=== PATIENT | female | born 1995 | race Caucasian/White ===

== ENCOUNTER 2017-02-14 19:49 | Emergency (ER) | payer OTHER ==
[~2017-02-14] VITALS: Ht 165.1 cm; Wt 80.9 kg
[~2017-02-14 19:49] MED LIST: MEDR150D9 IM
[2017-02-14 20:13] VITALS: BP 144/67; PULSE 90; RESP 16; O2SAT 99
--- NOTE | 2017-02-14 20:48 | ED.REPORT ---
HPI-Extremity Problem Upper Date of Service Feb 14, 2017 ED Provider: Dr. Escamilla Pt is an otherwise healthy 21 year old female who presents to the ED complaining of right hand pain after punching a wall prior to arrival. The pt punched a wall after her fiance left her. She denies any other symptoms. The pt denies feeling unsafe. She denies suicidal or homicidal ideations. Nursing Notes Stated Complaint: RIGHT HAND PAIN Chief Complaint: Extremity Trauma Nursing Notes Reviewed: Yes Allergies: Coded Allergies: Metronidazole HCl (Verified Allergy, Severe, Rash Respiratory Distress, ) metronidazole (Verified Allergy, Severe, Rash Respiratory Distress, ) vancomycin (Verified Allergy, Severe, Rash Respiratory Distress, 05/23/15) doxycycline (Verified Allergy, Unknown, 05/23/15) hydromorphone (Verified Allergy, Unknown, 08/22/15) hydromorphone HCl (Verified Adverse Reaction, Mild, 05/23/15) SENSITIVE TO DOSING - GETS SOB Scheduled Medroxyprogesterone Acetate (Depo-Provera) 150 Mg/1 Ml Syringe 150 MG IM every 3 months General Time Seen by MD: 20:48 Chief Complaint Wrist injury right Hx Obtained From: Patient Arrived By: Walk-in Onset Occurred: Just prior to arrival Symptom Duration: Since onset Location: : Wrist right Quality: Painful Severity: Current: Moderate Severity: Maximum: Moderate Immunizations: All up to date Recent Healthcare: No recent doctor visit, No recent hospitalization Similar Sx Previous: No Past Medical History Past Medical History Fibromyalgia Stomach ulcers Denies: Congestive heart failure, Diabetes mellitus Past Surgical History Reports: Appendectomy Family History Noncontributory Smoking History Never Smoker Social History Taking care of her grandma Alcohol Use: Denies alcohol use Drug Use: Denies drug use Other Social History: Lives with parents [facility] a [facility] Ambulatory Status Independent Review of Systems Basic Review of Systems Eyes: Vision NL ENT: Hearing NL Musculoskeletal: Reports: Extremity pain Complete sys rev & neg: except as marked. Respiratory: Denies: Non-productive cough, Shortness of breath Physical Exam Initial Vital Signs Vital Signs (First) Date Time Temp Pulse Resp B/P Pulse Ox O2 Delivery O2 Flow Rate FiO2 02/14/17 20:13 37.6 90 16 144/67 99 Room Air Initial VS: Reviewed Head / Eyes: Atraumatic, Normocephalic, PERRL ENT: Mucous membranes moist, Conjunctiva normal, No scleral icterus Neck: Supple, Full range of motion Respiratory: Breath sounds normal, Clear to auscultation, No respiratory distress Cardiovascular: Regular rate & rhythm, Heart sounds normal, Intact distal pulses Abdomen / GI: Soft, Non-tender Lower Extremities: Vascular intact, Neuro intact Skin: Warm, Dry, No cyanosis Neurologic: Alert, Oriented, Nonfocal Psychiatric: Mood/affect normal, Behavior normal General/Constitutional: Awake, Alert, Cooperative, Not toxic appearing Behavior: Positive: Tearful Wrist / Hand: Neurologic intact, Vascular intact Dorsal wrist tenderness and swelling No bony deformity. Interpretation & Diagnostics X-Ray Interpretation Xray Interpretation: IMPRESSION: No acute radiographic findings. If pain persists, repeat study in 5-7 days is recommended to exclude occult fracture. Dictated by: Brandie Zavala M.D. on 02/14/2017 at 20:49 Study Performed: Minimum 3 views X-Ray Ordered: Wrist right Interpretation / Wet Read by: Interpret - Radiologist Re-Eval/Medical Decision Med Decision/Clinical Course Healthy 21-year-old female punched a wall after her fiance moved out of the house. She came in quite anxious. She is evaluated by her social work program coordinator. She does not need to be admitted. She felt better after talking or social work program coordinator. No suicidal homicidal ideations and she feels safe at home. She has to take care of a family member at home was on hospice. Her hand was tender so we x- rayed it. X-rays look good. We placed her in a splint after which she was neurovascularly intact. It was a Velcro splint. She needed to use her hand at times take care of her family member. Short course of opiates provided for pain. She is not to combine this with any sedatives. No driving or alcohol or acetaminophen for multiple opiates. Follow-up in a week for repeat x-rays if pain persists. Source of Hx: Old records Re-Evaluation/Progress : Time of Eval: 22:04 Re-Evaluation/Progress Note: Pt rechecked. Informed pt of plan for discharge. Pt understands and agrees with plan for discharge. F/U instructions and RTER warnings given. All questions addressed. Counseled Regarding: Diagnosis, Need for follow-up, When/why to return to ED Discharge & Departure Shift Change Sign-Out Response to Therapy: Improved Impression: Primary Impression: Hand contusion Encounter type: initial encounter Laterality: right Qualified Code: S60.221A - Contusion of right hand, initial encounter Disposition: Home Discharge Condition All VS Reviewed: Yes Condition: Stable Additional Instructions: Keep your wrist splinted for 1 week. Call the referral orthopedic surgeon or your primary care physician to set up for follow-up. If your are still having pain after 7 days you will need repeat x-rays. Have this managed by your primary care provider. Take 1-2 Lydia every 6 hours as needed. Do not drive, drink alcohol, or consume acetaminophen while taking Lydia. Return to the Emergency Department for any concerning symptoms or as needed. Contact of the outpatient counselors that were provided by our social work program coordinator. Return to the emergency department if you feel that you are having a psychiatric or medical emergency. Return if you feel that you are unable to manage your current social issues at home or if you have any suicidal or homicidal ideations Referrals: Cindy Franco PA-C (PCP) Alfredito Gonzales Attestation Portions of this note were transcribed by Raven Swan. I, Dr. Escamilla personally performed the history, physical exam and medical decision-making; I reviewed and confirmed the accuracy of the information in the transcribed note. Signed by: Saloni Billy, 02/14/17 and 21:30 copies to: Alfredito Gonzales DO; Cindy Franco PA-C, Todd P DO Feb 14, 2017 20:48 Raven Capps Feb 14, 2017 21:11
--- NOTE | 2017-02-14 20:52 | DRSVH ---
PROCEDURE: X-RAY RIGHT HAND, MINIMUM THREE VIEWS ([id number]) INDICATIONS: injury TECHNIQUE: 3 views of the hand(s) acquired. COMPARISON: None. FINDINGS: Bones: No fractures or dislocations. Carpal bones are normally aligned. No suspicious bony lesions . Soft tissues: No suspicious soft tissue calcifications. IMPRESSION: No acute radiographic findings. If pain persists, repeat study in 5-7 days is recommende d to exclude occult fracture. Dictated by: Brandie Zavala M.D. on 02/14/2017 at 20:49 Approved by: Brandie Zavala M.D. on 02/14/2017 at 20:50
[2017-02-14] MEDS ORDERED: _HYDROcodone/APAP 5-325 mg Tablet PO PRN (21:10)
[2017-02-14 22:13] VITALS: BP 105/65; PULSE 80; RESP 14; O2SAT 100
== END 2017-02-14 22:14 | disposition home or self-care (01) ==
LOC: SED 19:49
DX: S60.221A Contusion of right hand, initial encounter (principal); W22.09XA Striking against other stationary object, initial encounter; Y93.89 Activity, other specified; Y92.9 Unspecified place or not applicable; Y99.8 Other external cause status; Z88.5 Allergy status to narcotic agent; Z88.1 Allergy status to other antibiotic agents; Z88.8 Allergy status to other drugs, medicaments and biological substances

== ENCOUNTER 2017-05-11 18:26 | Emergency (ER) | payer OTHER ==
[~2017-05-11] VITALS: Ht 165.1 cm; Wt 77.7 kg
[2017-05-11 18:44] VITALS: BP 145/90; PULSE 63; RESP 17; O2SAT 100
--- NOTE | 2017-05-11 19:23 | ED.REPORT ---
HPI-Headache Date of Service May 11, 2017 ED Provider: Dr. Mckeon Pt is a 21 y/o female w/ a hx of portal vein thrombosis as a complication of gastric sleeve surgery, recently discontinued Xarelto after one year. She also has a history of migraines presenting to the ED c/o migraine headache onset 1 week ago. She experiences migraines rarely for which she takes Fioricet which usually provides relief but this episode it has not helped. Pt c/o associated nausea, mild photophobia. She denies trauma, fever, focal weakness/numbness, seizures, speech or vision changes, confusion. There is no family history of coagulation disorders. Nursing Notes Stated Complaint: MIGRAINE DAY 7 Chief Complaint: Headache Nursing Notes Reviewed: Yes Allergies: Coded Allergies: Metronidazole HCl (Verified Allergy, Severe, Rash Respiratory Distress, ) metronidazole (Verified Allergy, Severe, Rash Respiratory Distress, ) vancomycin (Verified Allergy, Severe, Rash Respiratory Distress, 05/23/15) doxycycline (Verified Allergy, Unknown, 05/23/15) hydromorphone (Verified Allergy, Unknown, 08/22/15) shellfish derived (Verified Allergy, Unknown, hives, 05/11/17) hydromorphone HCl (Verified Adverse Reaction, Mild, 05/23/15) SENSITIVE TO DOSING - GETS SOB Scheduled Medroxyprogesterone Acetate (Depo-Provera) 150 Mg/1 Ml Syringe 150 MG IM every 3 months Scheduled PRN Rizatriptan ODT (Rizatriptan) 10 Mg Tablet 10 MG PO [id number] PRN PRN migraine General Time Seen by MD: 19:22 Chief Complaint Migraine headache Hx Obtained From: Patient Arrived By: Walk-in Sudden in Onset?: No Onset Occurred: 1 week ago Symptom Duration: Since onset Location: : Generalized Quality: Aching Severity: Current: Moderate Severity: Maximum: Moderate Recent Healthcare: Previous diagnosis Similar Sx Previous: Yes Past Medical History Past Medical History Fibromyalgia Stomach ulcers Hx of portal venous thrombus after a gastric sleeve surgery Past Surgical History Gastric sleeve Reports: Appendectomy Family History Noncontributory Smoking History Never Smoker Social History Alcohol Use: Denies alcohol use Drug Use: Denies drug use Other Social History: Lives with parents Occupation [employer] as a [employer] Ambulatory Status Independent Review of Systems Constitutional: Denies: Chills, Fever Eyes: Reports: Photophobia Neurologic: Reports: Headache, Denies: Change LOC, Confusion, Focal weakness, Numbness, Seizure, Shaking, Slurred speech, Unable to speak, Vision change Complete sys rev & neg: except as marked. Physical Exam Initial Vital Signs Vital Signs (First) Date Time Temp Pulse Resp B/P Pulse Ox O2 Delivery O2 Flow Rate FiO2 05/11/17 18:44 37.1 63 17 145/90 100 Room Air Initial VS: Reviewed, Vital signs normal ENT: Mucous membranes moist, Conjunctiva normal, No scleral icterus Respiratory: Breath sounds normal, Clear to auscultation, No respiratory distress Cardiovascular: Regular rate & rhythm, Heart sounds normal, Intact distal pulses Abdomen / GI: Soft, Non-tender Extremities: Vascular intact, Neuro intact, No swelling Skin: Warm, Dry, No cyanosis Psychiatric: Mood/affect normal, Behavior normal, Normal thought content General/Constitutional: Awake, Alert, No acute distress, Well appearing, Cooperative, Not toxic appearing Head / Eyes: Atraumatic, Normocephalic, PERRL, EOMI Neck: Atraumatic, Supple, No meningismus, Full range of motion Neurologic: Oriented X3, Speech NL, No motor deficits, No sensory deficits, CN II - XII intact, Cerebellar NL, Memory NL Interpretation & Diagnostics Lab Results Interpretation Result Diagram: 05/11/17195405/11/171954 Test 05/11/17 19:55 White Blood Count 6.8th/mm3 (3.8-10.1) Red Blood Count 3.84mil/mm3 (3.90-5.20) Hemoglobin 12.1g/dL (12.0-15.6) Hematocrit 35.9% (35.0-46.0) Mean Corpuscular Volume 93.5fL (81-100) Mean Corpuscular Hemoglobin 31.5pg (27.0-35.0) Mean Corpuscular Hemoglobin Concent 33.7% (32.0-37.0) Red Cell Distribution Width 11.9% (12.3-15.4) Platelet Count 170bil/L (150-400) Neutrophils (%) (Auto) 55.9% (40-74) Lymphocytes (%) (Auto) 33.8% (14-46) Monocytes (%) (Auto) 8.0% (4-12) Eosinophils (%) (Auto) 1.9% (0-5) Basophils (%) (Auto) 0.3% (0-3) Erythrocyte Sedimentation Rate 6mm/hr (0-32) Prothrombin Time 10.4sec (8.1-12.5) Prothromb Time International Ratio 0.97ratio Activated Partial Thromboplast Time 27.3sec (22.8-33.0) Sodium Level 140mEq/L (134-144) Potassium Level 4.1mEq/L (3.5-5.2) Chloride Level 105mEq/L (97-108) Carbon Dioxide Level 20mmol/L (18-29) Blood Urea Nitrogen 12mg/dL (6-20) Creatinine 0.72mg/dL (0.57-1.00) Estimat Glomerular Filtration Rate 148mL/min (>59) Glucose Level 113mg/dL (60-99) Calcium Level 8.9mg/dL (8.5-10.1) C-Reactive Protein 0.5mg/dL (0.0-0.5) Hold Santamaria Top Tube Received (Received) Re-Eval/Medical Decision Med Decision/Clinical Course 21-year-old female status post gastric sleeve and complication of a portal vein thrombosis, presents now one of her typical migraines. No evidence of other pathology, and she is fortunately off anticoagulants for many months now. She is neurologically intact and stable, and improved nearly completely after a standard migraine cocktail. Discharged in stable condition with prescription for a trial of Maxalt [employer]. Warned about rebound headaches with Fioricet as a possibility of repetitive use. Source of Hx: Old records Re-Evaluation/Progress : Time of Eval: 21:25 Re-Evaluation/Progress Note: Pt rechecked. Feeling much better and wants to go home. Informed pt of plan for discharge. Pt understands and agrees with plan for discharge. F/U instructions and RTER warnings given. All questions addressed. Counseled Regarding: Diagnosis, Lab results, Need for follow-up, When/why to return to ED Discharge & Departure Impression: Primary Impression: Migraine Migraine type: unspecified Status migrainosus presence: without status migrainosus Intractability: not intractable Qualified Code: G43.909 - Migraine, unspecified, not intractable, without status migrainosus Disposition: Home Discharge Condition All VS Reviewed: Yes Condition: Stable Patient Instructions: Migraine Headache (ED) Additional Instructions: Consider a trial of Maxalt [employer] at the earliest onset of a migraine type headache Follow-up with your doctor in the office. Your current use of Fioricet should not be problematic, but frequent use causes withdrawal/rebound headaches. Just be wary of using it more than once a month or so. Try and maintain hydration with clear fluids today. Return if any immediate issues. Referrals: Cindy Franco PA-C (PCP) Scribe Attestation Portions of this note were transcribed by Stephane Ingram. I, Dr. Mckeon, personally performed the history, physical exam and medical decision-making; I reviewed and confirmed the accuracy of the information in the transcribed note. copies to: Cindy Franco PA-C, Christopher W MD May 11, 2017 19:23 STEPHANE INGRAM May 11, 2017 19:25
[2017-05-11] MEDS ORDERED: 0.9% Sodium Chloride 1,000 ML IV ONE (19:31)
[2017-05-11] MEDS ORDERED: Haloperidol 5 mg/mL Inj IV ONE (19:35)
[2017-05-11] MEDS ORDERED: Dexamethasone 10 mg/mL Inj IVPUSH ONE (19:35)
[2017-05-11 20:03] LABS: BASOPHILS % (AUTO) 0.3 % (0-3); EOSINOPHILS % (AUTO) 1.9 % (0-5); Mean Corpuscular Hemoglobin 31.5 pg (27.0-35.0); Mean Corpuscular Volume 93.5 fL (81-100); NEUTROPHILS % (AUTO) 55.9 % (40-74); Platelet Count 170 bil/L (150-400)
[2017-05-11 20:24] LABS: ERYTHROCYTE SEDIMENTATION RATE 6 mm/hr (0-32)
[2017-05-11 20:25] LABS: INR 0.97 ratio
[2017-05-11] MEDS ORDERED: RIZA10TA28 PO (21:21)
[2017-05-11 21:37] VITALS: BP 103/62; PULSE 59; RESP 20; O2SAT 99
== END 2017-05-11 21:38 | disposition home or self-care (01) ==
LOC: SED 18:26
DX: G43.909 Migraine, unspecified, not intractable, without status migrainosus (principal); M79.7 Fibromyalgia; Z87.19 Personal history of other diseases of the digestive system; Z98.84 Bariatric surgery status; Z86.718 Personal history of other venous thrombosis and embolism; Z90.89 Acquired absence of other organs
CPT/HCPCS: 36415; 80048; 85025; 85610; 85651; 85730; 86140; 96361; 96374; 96375; 99284; J1100; J1200; J1630; J1885; J7030

== ENCOUNTER 2017-05-17 19:35 | Emergency (ER) | payer OTHER ==
[~2017-05-17] VITALS: Ht 165.1 cm; Wt 170.0 kg
[~2017-05-17 19:35] MED LIST changes: +RIZA10TA28 PO
[2017-05-17 19:43] VITALS: BP 125/85; PULSE 72; RESP 16; O2SAT 99
--- NOTE | 2017-05-17 21:44 | ED.REPORT ---
HPI-Headache Date of Service May 17, 2017 ED Provider: Nino Mckeon MD Pt is a 21 year old female with a history of migraines who presents to the ED c/ o a migraine onset 6 days ago. She has been into the ED previously on 05/11/17 for similar symptoms and states her headache has not left since then. She states she has pain bilaterally in her head that is worsening. Additional symptoms include a line in her vision in her right eye, floaters in her eye, and mild aphasia. She denies nasal congestion, cough, rhinorrhea, or any new trauma since her last ED visit. Nursing Notes Stated Complaint: MIGRAINE X14 DAYS Chief Complaint: Headache Nursing Notes Reviewed: Yes Allergies: Coded Allergies: Metronidazole HCl (Verified Allergy, Severe, Rash Respiratory Distress, ) metronidazole (Verified Allergy, Severe, Rash Respiratory Distress, ) vancomycin (Verified Allergy, Severe, Rash Respiratory Distress, 05/17/17) doxycycline (Verified Allergy, Unknown, 05/17/17) hydromorphone (Verified Allergy, Unknown, 05/17/17) shellfish derived (Verified Allergy, Unknown, hives, 05/17/17) hydromorphone HCl (Verified Adverse Reaction, Mild, 05/17/17) SENSITIVE TO DOSING - GETS SOB Scheduled Amoxicillin/Clav K 875-125 mg (Augmentin 875-125 mg) 1 Each Tablet 1 TABLET PO BID Guaifenesin/Pseudoephedrne HCl (Entex T 60-375 mg Tablet) 1 Each Tablet 1 EACH PO BID Medroxyprogesterone Acetate (Depo-Provera) 150 Mg/1 Ml Syringe 150 MG IM every 3 months Scheduled PRN Rizatriptan ODT (Rizatriptan) 10 Mg Tablet 10 MG PO [id number] PRN PRN migraine General Time Seen by MD: 21:44 Chief Complaint Migraine headache Hx Obtained From: Patient, Other family... (Mother) Arrived By: Walk-in Sudden in Onset?: No Onset Occurred: 6 days ago Symptom Duration: Constant Quality: Painful Severity: Current: Moderate Severity: Maximum: Moderate Recent Healthcare: Recent doctor visit Similar Sx Previous: Yes Risk-Headache )( SAH Risk Stratification RF Statements: Risk factors reviewed )( IC Mass Risk Stratification RF Statements: Risk factors reviewed Past Medical History Past Medical History Fibromyalgia Stomach ulcers Hx of portal venous thrombus after a gastric sleeve surgery Chronic migraines Past Surgical History Gastric sleeve Reports: Appendectomy Family History Noncontributory Smoking History Never Smoker Social History Alcohol Use: Denies alcohol use Drug Use: Denies drug use Other Social History: Lives with parents Ambulatory Status Independent Review of Systems Floaters in eye Line in sight of vision in right eye Mild aphasia No rhinorrhea Ears / Nose / Throat: Denies: Nasal congestion Neurologic: Reports: Headache (migraine), Vision change, Denies: Change LOC, Focal weakness, Numbness Complete sys rev & neg: except as marked. Respiratory: Denies: Non-productive cough, Prod cough, clear Physical Exam Initial Vital Signs Vital Signs (First) Date Time Temp Pulse Resp B/P Pulse Ox O2 Delivery O2 Flow Rate FiO2 05/17/17 19:43 36.9 72 16 125/85 99 Room Air Initial VS: Reviewed Extremities: Vascular intact, Neuro intact, No swelling, No tenderness Skin: Warm, Dry, No cyanosis Psychiatric: Mood/affect normal, Behavior normal, Normal thought content General/Constitutional: Awake, Alert Head / Eyes: Atraumatic, Normocephalic No evidence of increased intracranial pressure Fundi negative Neck: Supple, Full range of motion Neurologic: Oriented X3, Speech NL, CN II - XII intact Respiratory / Chest: Atraumatic, Breath sounds NL, Breath sounds = bilat, No respiratory distress Cardiovascular: Heart rate NL, Regular rhythm, Heart sounds NL Interpretation & Diagnostics MRI BRAIN: Conclusion: No acute intracranial abnormality. Significant right sphenoid sinus disease. Lab Results Interpretation Result Diagram: 05/17/17221905/17/17 222 Test 05/17/17 22:20 White Blood Count 8.5th/mm3 (3.8-10.1) Red Blood Count 4.37mil/mm3 (3.90-5.20) Hemoglobin 13.7g/dL (12.0-15.6) Hematocrit 40.6% (35.0-46.0) Mean Corpuscular Volume 92.9fL (81-100) Mean Corpuscular Hemoglobin 31.4pg (27.0-35.0) Mean Corpuscular Hemoglobin Concent 33.7% (32.0-37.0) Red Cell Distribution Width 11.9% (12.3-15.4) Platelet Count 216bil/L (150-400) Neutrophils (%) (Auto) 49.0% (40-74) Lymphocytes (%) (Auto) 38.0% (14-46) Monocytes (%) (Auto) 9.9% (4-12) Eosinophils (%) (Auto) 2.5% (0-5) Basophils (%) (Auto) 0.5% (0-3) Erythrocyte Sedimentation Rate 8mm/hr (0-32) Sodium Level 136mEq/L (134-144) Potassium Level 3.9mEq/L (3.5-5.2) Chloride Level 102mEq/L (97-108) Carbon Dioxide Level 19mmol/L (18-29) Blood Urea Nitrogen 8mg/dL (6-20) Creatinine 0.64mg/dL (0.57-1.00) Estimat Glomerular Filtration Rate 169mL/min (>59) Glucose Level 86mg/dL (60-99) Calcium Level 9.3mg/dL (8.5-10.1) C-Reactive Protein 0.8mg/dL (0.0-0.5) Re-Eval/Medical Decision Med Decision/Clinical Course 21-year-old presents with persistent migraine. She was due for MRI per her primary care provider, and this is not been obtained. It was obtained tonight and is notable for sphenoid sinusitis but no brain lesions. Home with prior migraine meds, but additionally Augmentin and Entex decongestant. Follow-up with ear nose and throat. Source of Hx: Old records Re-Evaluation/Progress : Time of Eval: 00:25 Re-Evaluation/Progress Note: Patient rechecked. Discussed plan for discharge. Patient understands and agrees with plan. F/U instructions and RTER warnings given. All questions addressed at this time. Counseled Regarding: Diagnosis, Lab results, Need for follow-up, When/why to return to ED Discharge & Departure Impression: Primary Impression: Migraine Migraine type: unspecified Status migrainosus presence: without status migrainosus Intractability: not intractable Qualified Code: G43.909 - Migraine, unspecified, not intractable, without status migrainosus Additional Impression: Sphenoid sinusitis Chronicity: unspecified Qualified Code: J32.3 - Chronic sphenoidal sinusitis Disposition: Home Discharge Condition All VS Reviewed: Yes Condition: Stable Patient Instructions: Sinusitis (ED) Additional Instructions: You have sinusitis in the sphenoid sinus. We will begin a course of antibiotics (Augmentin) twice daily. Begin decongestants twice daily also. Follow-up with your doctor and with ear nose and throat. The sinusitis can easily precipitate migraine-type headaches, and clearing this up may clear up this prolonged episode you are having. Referrals: Cindy Franco PA-C (PCP) Scribe Attestation Portions of this note were transcribed by Estefanía Mixon. I, Dr. Mckeon, personally performed the history, physical exam and medical decision-making; I reviewed and confirmed the accuracy of the information in the transcribed note. copies to: Cindy Franco PA-C, Christopher W MD May 17, 2017 21:44 Estefanía Mixon May 17, 2017 21:50
[2017-05-17] MEDS ORDERED: 0.9% Sodium Chloride 1,000 ML IV ONE (21:52)
[2017-05-17] MEDS ORDERED: Haloperidol 5 mg/mL Inj IVPUSH ONE (21:55)
[2017-05-17] MEDS ORDERED: Ondansetron 2 mg/mL 2 mL Inj IVPUSH ONE (21:55)
[2017-05-17] MEDS ORDERED: DIHYDROERGOTAMINE 1 MG/ML IV ONE (21:55)
[2017-05-17 22:33] LABS: BASOPHILS % (AUTO) 0.5 % (0-3); EOSINOPHILS % (AUTO) 2.5 % (0-5); MONOCYTES % (AUTO) 9.9 % (4-12); Mean Corpuscular Hemoglobin 31.4 pg (27.0-35.0); Mean Corpuscular Volume 92.9 fL (81-100); Platelet Count 216 bil/L (150-400)
[2017-05-17] MEDS ORDERED: 0.9% Sodium Chloride 50 ML ONE (22:37)
[2017-05-17 22:49] LABS: ERYTHROCYTE SEDIMENTATION RATE 8 mm/hr (0-32)
[2017-05-17 23:44] VITALS: BP 107/71; PULSE 73; O2SAT 100
[2017-05-18] MEDS ORDERED: Amoxicillin-Clav 875-125 mg Tablet PO ONE (00:35)
[2017-05-18] MEDS ORDERED: GUAI-652 PO (00:40)
[2017-05-18] MEDS ORDERED: AMOX-366 PO (00:40)
[2017-05-18 00:53] VITALS: BP 102/69; PULSE 64; O2SAT 98
--- NOTE | 2017-05-18 08:15 | DRSVH ---
PROCEDURE: MRI BRAIN WITHOUT CONTRAST ([id number]) INDICATIONS: constant burden 2 weeks TECHNIQUE: Noncontrast axial T1 spin echo, axial T2 fast spin echo, sagittal and axial FLAIR, coronal T2 fast sp in echo, axial gradient echo, axial diffusion and ADC through the brain. COMPARISON: None. FINDINGS: Image quality: Excellent. CSF Spaces: Basal cisterns are patent. No extra-axial fluid collections. Ventricles are normal in size and shape. Brain: No intracranial masses or hemorrhage. Lind/white matter interface is normal. Brainstem appe ars normal. Diffusion-weighted images demonstrate no acute ischemic insult. No chronic ischemic ins ults. Normal intravascular flow voids are present. Skull and face: Calvarium has normal marrow signal. Orbits appear normal. Sinuses: Mucosal thickening noted in the right sphenoid sinus. mastoids are clear. IMPRESSION: 1. No intracranial disease process. 2. Right sphenoid sinusitis. Dictated by: Mirtha Field MD, PhD on 05/18/2017 at 8:11 Approved by: Mirtha Field MD, PhD on 05/18/2017 at 8:13
== END 2017-05-18 00:54 | disposition home or self-care (01) ==
LOC: SED 19:35
DX: G43.909 Migraine, unspecified, not intractable, without status migrainosus (principal); J32.3 Chronic sphenoidal sinusitis; M79.7 Fibromyalgia; Z98.890 Other specified postprocedural states; Z88.1 Allergy status to other antibiotic agents; Z88.5 Allergy status to narcotic agent; Z91.013 Allergy to seafood
CPT/HCPCS: 36415; 70551; 80048; 85025; 85651; 86140; 96361; 96374; 96375; 99285; J1110; J1200; J1630; J2405; J7030

== ENCOUNTER 2017-05-29 17:12 | Emergency (ER) | payer OTHER ==
[~2017-05-29] VITALS: Ht 165.1 cm; Wt 76.4 kg
[~2017-05-29 17:12] MED LIST changes: +AMOX-366 PO; +GUAI-652 PO
[2017-05-29 17:28] VITALS: BP 118/76; PULSE 58; RESP 16; O2SAT 100
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
== END 2017-05-29 18:08 | disposition home or self-care (01) ==
LOC: SED 17:12
DX: S16.1XXA Strain of muscle, fascia and tendon at neck level, initial encounter (principal); S40.021A Contusion of right upper arm, initial encounter; S20.20XA Contusion of thorax, unspecified, initial encounter; V43.52XA Car driver injured in collision with other type car in traffic accident, initial encounter; Y93.89 Activity, other specified; Y92.410 Unspecified street and highway as the place of occurrence of the external cause; Y99.8 Other external cause status; Z88.1 Allergy status to other antibiotic agents; Z88.5 Allergy status to narcotic agent; Z91.013 Allergy to seafood